=== PATIENT | male | born 1985 | race American Indian/Alaskan Native ===

== ENCOUNTER 2020-08-20 11:33 | Emergency (ER) | payer OTHER ==
[2020-08-20 11:40] VITALS: BP 129/86
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
--- NOTE | 2020-08-20 14:34 | XRay Report ---
CLINICAL DATA: [facility] TECHNICAL DATA: AP internal, AP external, and Y views were obtained of the shoulder. FINDINGS: There is no acute fracture. The glenoid fossa humeral head articulation is normal. There is no acromi oclavicular joint widening or offset. The coracoclavicular distance is normal. There are no significa nt degenerative changes. IMPRESSION: No acute radiographic abnormality. Signer Name: Kirit Gaming MD Signed: 08/20/2020 2:29 PM Workstation Name: [id number]
== END 2020-08-20 15:24 | disposition home or self-care (01) ==
LOC: ED 11:33
DX: S16.1XXA Strain of muscle, fascia and tendon at neck level, initial encounter (principal); S40.011A Contusion of right shoulder, initial encounter; Z79.899 Other long term (current) drug therapy; V49.49XA Driver injured in collision with other motor vehicles in traffic accident, initial encounter; Y93.89 Activity, other specified; Y92.488 Other paved roadways as the place of occurrence of the external cause; Y99.8 Other external cause status
CPT/HCPCS: 72125; 99283